=== PATIENT | male | born 1960 | race Asian ===

== ENCOUNTER 2019-05-22 04:44 | Inpatient (IN) | payer OTHER, MEDICAID ==
[~2019-05-22] VITALS: Ht 177.8 cm; Wt 95.9 kg
[2019-05-22] MEDS ORDERED: NIFEdipine 10 MG CAP PO ONE (05:45)
[2019-05-22 05:51] LABS: Basophils # (auto) 0 uL; Basophils % (auto) 0.4 % (0.0-2.0); Eosinophils # (auto) 0.3 uL; Eosinophils % (auto) 2.9 % (0.0-7.0); Hematocrit 45.7 % (41.0-53.0); Hemoglobin 14.5 g/dL (13.5-17.5); Mean Corpuscular Hemoglobin 22.2 pg (28.0-32.0); Mean Corpuscular Hgb Conc. 31.6 g/dL (32.0-36.0); Mean Corpuscular Volume 70.3 fL (80.0-100.0); Monocytes # (auto) 0.7 uL; Monocytes % (auto) 6.6 % (0.0-12.0); Neutrophils # (auto) 7.1 uL; Neutrophils % (auto) 70.1 % (37.0-80.0); Platelet Count (auto) 348 10^3/uL (140-450); Red Blood Cells 6.51 10^6/uL (4.5-5.90); Red Cell Distribution Width 14.9 % (11.8-14.3); White Blood Cell 10.2 10^3/uL (4.4-10.8)
[2019-05-22 06:19] LABS: INR < 0.93 (0.9-1.15); Partial Thromboplastin Time 28.2 sec (23.64-32.05)
[2019-05-22 06:22] LABS: Calcium 9.1 mg/dL (8.5-10.1)
[2019-05-22 06:30] LABS: BUN/Creatinine Ratio 9.3; Bilirubin, Total 0.7 mg/dL (0.2-1.0); Total Protein 8.1 g/dL (6.4-8.2)
[2019-05-22 06:37] LABS: Potassium 1.8 mmol/L (3.5-5.1)
[2019-05-22] MEDS ORDERED: POTASSIUM CHL 20MEQ/100ML 100 ML IV ONE ×3 (07:00→09:00)
[2019-05-22] MEDS ORDERED: POTASSIUM EFFERVESENT TAB 25 MEQ PO ONE (07:00)
[2019-05-22] MEDS ORDERED: NITROGLYCERIN 0.4 MG SL TAB SL PRN (07:30)
[2019-05-22] MEDS ORDERED: TEMAZEPAM 15 MG CAP PO PRN (07:30)
[2019-05-22] MEDS ORDERED: MORPHINE SULF INJ 2 MG/ML SYRINGE 1ML IV PRN (07:30)
[2019-05-22] MEDS ORDERED: ONDANSETRON HCL 4 MG/2 ML VIAL IV PRN (07:30)
[2019-05-22] MEDS ORDERED: cloNIDine HCL 0.1 MG TAB PO PRN (07:30)
[2019-05-22] MEDS ORDERED: GEMFIBROZIL 600 MG TAB PO SCH ×2 (08:15)
[2019-05-22 08:42] LABS: Urine Bacteria NONE SEEN /hpf (None Seen); Urine Blood 2+ /uL (Negative); Urine Specific Gravity 1.012 (1.001-1.035); Urine WBC 3 /hpf (0 - 3)
[2019-05-22] MEDS ORDERED: LOSARTAN POTASSIUM 25 MG TAB PO SCH (10:00)
[2019-05-22] MEDS: ASPirin 81 mg TAB PO SCH (10:33)
[2019-05-22] MEDS: PANTOPRAZOLE 40 MG TAB PO SCH (10:34)
[2019-05-22] MEDS: ALLOPURINOL 100 MG TAB PO SCH (10:34)
[2019-05-22 11:09] LABS: Potassium 2.3 mmol/L (3.5-5.1)
[2019-05-22] MEDS ORDERED: POTASSIUM CHL 20 Meq TABLET PO ONE ×3 (11:15→18:00)
--- NOTE | 2019-05-22 11:40 | NUR ---
Telemetry admit from ER Patient admitted to Telemetry unit after SBAR received. Patient oriented to primary RN, unit, room, bed, and unit policies regarding patient care and visiting hours. Patient now on continuous telemetry monitoring, tele box #[id number] and telemetry reading on arrival to unit is SR in the 70's. Patient's son at bedside. Patient has severe weakness in bilateral upper extremities and mild weakness in bilateral lower extremities. Patient acclimated to room and encouraged to call if they need something. Bed in lowest, locked position with side rails up x2. Fall precautions in place and call light within reach. All questions and concerns addressed, patient verbalized understanding. Will continue to monitor Q1hr/PRN.
[2019-05-22] MEDS ORDERED: DEXTROSE (50%) 50ML SYRG IV PRN (14:15)
[2019-05-22] MEDS ORDERED: POTASSIUM CHLORIDE 40 MEQ, LIDOCAINE 1% (LOCAL ANESTH.) 4 ML in SODIUM CHL 0.9% 100 ML IV ONE (14:15)
[2019-05-22] MEDS ORDERED: amLODIPine BESYLATE 5 MG TAB PO ONE (15:30)
[2019-05-22] MEDS ORDERED: GEMF600T PO (15:54)
[2019-05-22] MEDS ORDERED: PANT40T PO (15:54)
[2019-05-22] MEDS ORDERED: ZOLP12.564 PO (15:54)
[2019-05-22] MEDS ORDERED: ALLO100T PO (15:54)
[2019-05-22] MEDS ORDERED: LOSA-69 PO (15:54)
[2019-05-22] MEDS: ACETAMINOPHEN 325 MG TAB PO PRN ×2 (16:30→18:30)
[2019-05-22 16:57] VITALS: BP 158/100
[2019-05-22] MEDS: SOD CHL 0.9%/ KCL 40MEQ 1,000 ML IV SCH (17:03)
[2019-05-22] MEDS: InsuLIN REG 1unit/0.01ml Soln (100units/ml) SC SCH ×2 (17:04→21:35)
[2019-05-22] MEDS: ACCU-CHEK COMFORT CURVE STRIP VI SCH ×2 (17:04→21:34)
[2019-05-22 17:40] LABS: BUN/Creatinine Ratio 10.3; Calcium 8.8 mg/dL (8.5-10.1)
[2019-05-22 17:47] LABS: Potassium 2.6 mmol/L (3.5-5.1)
--- NOTE | 2019-05-22 17:50 | NUR ---
CRITICAL LAB Received call from lab regarding critical K+ level, 2.6. plate grainer hospitalist, Dr. Valles, aware. New order received for Potassium 50meq PO.
--- NOTE | 2019-05-22 19:30 | NUR ---
OPENING NOTE REPORT RECEIVED FROM DAY SHIFT RN PATIENT IS A/OX4, ABLE TO VERBALIZE ALL NEEDS. NO S/S OF DISTRESS NOTED AT THIS TIME. POC DISCUSSED AND ALL QUESTIONS ANSWERED. PATIENT EDUCATED ON POSSIBLE STRESS TEST FOR TOMORROW. PATIENT EDUCATED TO REMAIN NPO AFTER MIDNIGHT, PATIENT VERBALIZED UNDERSTANDING. PATIENT ALSO EDUCATED THAT SECOND IV MUST BE PLACED, PATIENT REQUESTS FOR SECOND IV TO BE STARTED TOMORROW MORNING AND STATES,"I'VE BEEN POKED ENOUGH TODAY". ALL QUESTIONS ANSWERED. WILL MONITOR Q1H PRN THROUGHOUT SHIFT, CALL LIGHT WITHIN REACH.
--- NOTE | 2019-05-22 19:30 | NUR ---
CLOSING NOTE Endorsed care of patient to NOC RNAditi. Patient resting in bed, son is at bedside. No S/S of distress noted.
[2019-05-22 22:00] VITALS: BP 141/93
[2019-05-23] MEDS: SOD CHL 0.9%/ KCL 40MEQ 1,000 ML IV SCH ×3 (00:15→20:23)
[2019-05-23 05:00] VITALS: BP 151/78
--- NOTE | 2019-05-23 06:00 | NUR ---
attempted to place second IV on patient attempted x 3 times Patient now agitated, states, "I don't even want this test anymore, I'm already stressed" educated patient on the need for a second IV and that another RN can come to place the IV. Patient refused, states" I'm done getting poked today. Tell the doctor I don't want the test". After great lengths of discussion regarding the need for stress test, patient still refuses to let any RN place an second IV line Will notify charge and oncoming RN
[2019-05-23 06:12] LABS: Basophils # (auto) 0.1 uL; Lymphocytes # (auto) 1.9 uL; Nucleated Red Blood Cells % 0.1 %
[2019-05-23 06:14] LABS: Basophils % (auto) 0.8 % (0.0-2.0); Eosinophils # (auto) 0.4 uL; Eosinophils % (auto) 5.8 % (0.0-7.0); Hemoglobin 13.5 g/dL (13.5-17.5); Lymphocytes % (auto) 28.2 % (10.0-50.0); Mean Corpuscular Hemoglobin 22.1 pg (28.0-32.0); Mean Corpuscular Hgb Conc. 31.4 g/dL (32.0-36.0); Mean Corpuscular Volume 70.3 fL (80.0-100.0); Monocytes # (auto) 0.5 uL; Neutrophils % (auto) 58.2 % (37.0-80.0); Platelet Count (auto) 293 10^3/uL (140-450); Red Blood Cells 6.11 10^6/uL (4.5-5.90); Red Cell Distribution Width 14.8 % (11.8-14.3); White Blood Cell 6.9 10^3/uL (4.4-10.8)
[2019-05-23 06:35] LABS: BUN/Creatinine Ratio 11.4; Calcium 8.5 mg/dL (8.5-10.1); Magnesium 2.3 mg/dL (1.6-2.6)
[2019-05-23 06:40] LABS: Potassium 2.9 mmol/L (3.5-5.1)
--- NOTE | 2019-05-23 06:40 | NUR ---
critical lab received critical potassium level of 2.9 will page hospitalist
[2019-05-23] MEDS: InsuLIN REG 1unit/0.01ml Soln (100units/ml) SC SCH ×3 (06:44→18:04)
--- NOTE | 2019-05-23 06:44 | NUR ---
paged hospitalist regarding critical potassium awaiting call back
[2019-05-23] MEDS: ACCU-CHEK COMFORT CURVE STRIP VI SCH ×3 (06:45→18:04)
--- NOTE | 2019-05-23 07:03 | NUR ---
received call back from hospitalist lucie Mcintyre one time order for 40MEQ K PO order read back and verified will carry out order
[2019-05-23] MEDS ORDERED: POTASSIUM CHL 20 Meq TABLET PO ONE ×2 (07:15→12:30)
--- NOTE | 2019-05-23 07:24 | NUR ---
OPENING NOTE Assumed care of patient from NOC RNAditi. Patient awake and alert with no S/S of distress/SOB or pain. IV left forearm infusing NS 0.9% w/40meq KCL @ 100mls. Instructed on POC and to call for assist PRN, verbalized understanding. Bed in lowest, locked position with side rails up x2 and call light within reach. Will continue to monitor for changes Q1hr and PRN.
[2019-05-23] MEDS ORDERED: ADENOSINE 81 MG in GIVE UN-DILUTED 0 ML IV ONE (08:30)
[2019-05-23 09:00] VITALS: BP 154/97
--- NOTE | 2019-05-23 09:20 | NUR ---
OFF UNIT Patient taken off unit via wheelchair for Cardiolite. No S/S of distress noted.
[2019-05-23] MEDS ORDERED: amLODIPine BESYLATE 5 MG TAB PO SCH (10:00)
[2019-05-23] MEDS ORDERED: LOSARTAN POTASSIUM 25 MG TAB PO SCH (10:00)
--- NOTE | 2019-05-23 10:31 | NUR ---
RETURN TO UNIT Patient returned to unit via wheelchair, will continue to monitor.
[2019-05-23] MEDS: ASPirin 81 mg TAB PO SCH (10:49)
[2019-05-23] MEDS: PANTOPRAZOLE 40 MG TAB PO SCH (10:49)
[2019-05-23] MEDS: ALLOPURINOL 100 MG TAB PO SCH (10:50)
[2019-05-23 13:00] VITALS: BP 141/96
--- NOTE | 2019-05-23 13:20 | NUR ---
TRANSFER: faxed transfer packet to [facility], [facility] , [facility]. [facility] has holding and [facility]
--- NOTE | 2019-05-23 13:59 | NUR ---
[facility] is on will call.
--- NOTE | 2019-05-23 14:03 | NUR ---
Libby from [facility] stated they are starting to work on pt transfer
--- NOTE | 2019-05-23 14:53 | NUR ---
[facility] has declined pt. [facility] has beds per change house attendant. I informed Dr Arellano via page that he needs to call [phone] to get accepting MD at [facility]. As I said before, [facility] is on will call.
--- NOTE | 2019-05-23 15:17 | NUR ---
[facility] has no beds at this time, pt does not want to go to [facility] per primary RN. Dr. Arellano notified. Per primary RN, pt is going to call his insurance
--- NOTE | 2019-05-23 15:28 | NUR ---
Dr. Arellano called me at 1450 hrs to say that accepting MD at [facility] is Dr. Austin. Since I do not know the outcome of pt's discussion with his insurance, I am holding off calling [facility] since pt is resisting going to hospitals [facility] the [place].
--- NOTE | 2019-05-23 15:45 | NUR ---
PT HAS AGREED TO GO TO [facility]. I TRIED CALLING BED CONTROL AT [facility] [phone] AND HAD TO LEAVE A MESSAGE. Addendum: 05/23/19 at 1551 by Gladis Cervantes RN CM EXT IS [phone]
--- NOTE | 2019-05-23 16:03 | NUR ---
Belén at [facility] called back. She has financial review and then she will call with bed. If I am gone, Belén will call RN to give her bed #. Once bed # obtained, call [facility] with bed # and accepting MD as Dr. Austin
[2019-05-23 17:00] VITALS: BP 167/94
--- NOTE | 2019-05-23 17:48 | NUR ---
[facility] Received call from les coleman @ [facility]', states that patient will be going to room #653 and accepting MD is Dr. Austin. RN is to call ext. [phone] for report.
--- NOTE | 2019-05-23 18:22 | NUR ---
[facility] Spoke with Mary GUILLORY. Patient's pickup transfer time is scheduled for 2029.
--- NOTE | 2019-05-23 19:25 | NUR ---
CLOSING NOTE Endorsed care of patient to NOC RN, aware of patient's pending transfer to [facility].
--- NOTE | 2019-05-23 19:30 | NUR ---
Opening Shift Note Assumed care of patient, awake and alert. No S/S of distress/SOB or pain. Instructed on POC and to call for assist PRN, will continue to monitor for changes Q1hr and PRN.
--- NOTE | 2019-05-23 20:22 | NUR ---
Called MERRILL Hooks at [facility] to give SBAR report on patient. All questions and concerns answered.
[2019-05-23 21:00] VITALS: BP 136/97
--- NOTE | 2019-05-23 21:15 | NUR ---
patient discharged for transfer. [facility] arrived took patient via gurney. Report given. Patient is being transferred to [facility].
== END 2019-05-23 21:15 | disposition short-term general hospital (02) | DRG 640 ==
LOC: ER 04:44 → TELE-WESTW 04:45
PROVIDERS: ADMIT Nurse Practitioner; ATTEND Internal Medicine
DX: E87.6 Hypokalemia (principal); N17.0 Acute kidney failure with tubular necrosis; M62.82 Rhabdomyolysis; E11.9 Type 2 diabetes mellitus without complications; E66.9 Obesity, unspecified; E78.5 Hyperlipidemia, unspecified; F17.210 Nicotine dependence, cigarettes, uncomplicated; I10 Essential (primary) hypertension; I70.0 Atherosclerosis of aorta; M10.9 Gout, unspecified; Z79.899 Other long term (current) drug therapy; Z68.30 Body mass index [BMI] 30.0-30.9, adult
CPT/HCPCS: 36415; 70450; 71045; 74018; 78452; 80048; 80053; 81001; 82550; 82962; 83036; 83735; 83880; 84132; 84443; 84484; 84550; 85025; 85379; 85610; 85730; 93005; 93017; 93306; 93970; G0378; J0153; J1815; J2001; J3480